=== PATIENT | male | born 1965 | race African-American/Black ===

== ENCOUNTER 2016-08-22 19:10 | Emergency (ER) | payer OTHER ==
--- NOTE | 2016-08-22 19:37 | ERNOTE ---
Date of Service: 08/22/16 Time Seen by Provider: 08/22/16 19:14 Stated Complaint: CHEST CONGESTION. SINUS PAIN Source: patient, family, RN notes reviewed Exam Limitations: no limitations Immunizations: IMMUNIZATION HX Immunizations Up to Date Yes History of Influenza Vaccine Yes Hx Pneumococcal Vaccination Yes Allergies/Adverse Reactions: Allergies No Known Allergies Allergy (Unverified 08/22/16 19:14) Home Medications: HOME MEDICATIONS Amlodipine Besylate 08/22/16 [Last Taken Unknown] Azithromycin [Zithromax] 250 mg PO DAILY #6 tablet 08/22/16 [Last Taken Unknown] Lisinopril 08/22/16 [Last Taken Unknown] [place] 08/22/16 [Last Taken Unknown] Norvir 08/22/16 [Last Taken Unknown] Potassium Chloride [Klor-Con 10] 20 meq PO BID #20 tablet.sa 08/22/16 [Last Taken Unknown] Pravastatin Sodium 08/22/16 [Last Taken Unknown] Prezista 08/22/16 [Last Taken Unknown] Tamsulosin HCl 08/22/16 [Last Taken Unknown] Tivicay 08/22/16 [Last Taken Unknown] Truvada 100 mg-150 mg Tablet 08/22/16 [Last Taken Unknown] metFORMIN HCL 08/22/16 [Last Taken Unknown] - History of Present Ilness Narrative: 51 y/o male ambulatory to the ED with a cough that began 2 days ago. He began having fevers and chills this evening. He is immunocompromised due to his HIV medications. He reports having "infections in the lungs" frequently. His PCP is in [place] and he has never been seen here before. He is routinely seen at [facility] for his HIV. He reports that his viral load and CD4 counts were within normal limits at his last appointment. Date (Duration): 08/20/16 Frequency/Possible Cause: Reports: unknown cause Associated Symptoms: Reports: cough, headache, muscle aches, fever/chills. Denies: chest pain/soreness, shortness of breath, wheezing, facial pain, nasal congestion, nasal drainage, dizziness, lightheadedness, earache, sore throat Prior Treatment: Denies: recently seen, currently on antibiotics Review of Systems - Review of Systems Constitutional: Present: fever, chills, fatigue, malaise, decreased activity level. Absent: recent illness EYE: Present: no symptoms reported ENT: Present: See HPI Respiratory: Present: See HPI Cardiology: Present: See HPI Gastrointestinal/Abdominal: Present: abdominal pain. Absent: nausea, vomiting, diarrhea Genitourinary: Absent: dysuria, decreased urinary output Musculoskeletal: Present: back pain, muscle pain. Absent: neck pain Skin: Absent: rash, lesions Neurological: Present: headache. Absent: dizziness/light-headedness Endocrine: Present: no symptoms reported Hematologic/Lymphatic: Present: no symptoms reported Psych: Present: no symptoms reported - Patient's Past Medical History Patient History - Medical: Anxiety, Bipolar, Diabetes Type 2, Depression Patient History - Cardiac/Respiratory: Hypertension, Hyperlipidemia Patient History - Cancer: No Hx of Cancer Patient History - Surgical Procedures: Other Patient History - Other: HIV - Social History Living Situations: home Abuse History: No History of abuse Psych History: Hx of Anxiety, Hx of Depression, Hx of Bipolar Disorder Smoking Status: Current every day smoker Have you smoked in the past 12 months: Yes Do you dip or chew tobacco: No Patient requests Smoking Cessation Consult: No Initiate information on Smoking Cessation: No Alcohol Use: none Drug Use: none - Immunizations Immunizations Up to Date: Yes Hx Pneumococcal Vaccination: Yes History of Influenza Vaccine: Yes Physical Exam - Physical Exam General Appearance: Present: wd/wn, alert, no apparent distress Eye Exam: Normal inspection: bilateral Ears, Nose, Throat: Present: normal ENT inspection Neck: Present: normal inspection, nontender, supple Respiratory: Present: no respiratory distress, no accessory muscle use, decreased breath sounds, expiration (prolonged), rhonchi - Rt. mid lung Cardiovascular/Chest: Present: regular rate, rhythm, no murmur, normal peripheral pulses Extremity Exam: Present: normal inspection, no edema Neurological Exam: Present: alert, oriented, normal mood/affect, no motor/ sensory deficits Skin Exam: Present: normal color, warm/dry ED Progress - Results and Orders Patient's Lab Results:: I have reviewed the patient's lab results. - Vital Signs Patient's Vital Signs:: I have reviewed the patient's vital signs. Vital Signs: Vital Signs 08/22/16 19:14 Temperature 38.2 C H Pulse Rate 78 Respiratory 18 Rate Blood Pressure 148/86 O2 Sat by Pulse 97 Oximetry - X-Ray X-Ray #1 X-Ray: chest Interpretation: Reviewed by me X-ray Comments: No acute cardiopulmonary process noted - Progress/Reassessment Chief Complaint: Upper Respiratory Symptoms Progress:: Unchanged Plan - Plan Plan: Chest xray unremarkable, but given cough/fever/elevated WBC and his prior history will treat for pneumonia. Also given Kdur for his potassium of 2.9. Agreeable to recheck with his PCP this week. Departure - Departure Clinical Impression: Pneumonia Qualifiers: Pneumonia type: due to unspecified organism Laterality: unspecified laterality Lung location: unspecified part of lung Qualified Code(s): J18.9 - Pneumonia, unspecified organism Disposition: Home Follow Up Needed Condition: Stable Instructions: Hypokalemia, Community-Acquired Pneumonia, Adult, [id number] Additional Instructions: Rest as needed Drink plenty of fluids Return if worse, otherwise recheck with your doctor in 3 to 5 days Referrals: Haroldo Arriaga MD [Primary Care Provider] - Prescriptions: Azithromycin [Zithromax] 250 mg PO DAILY #6 tablet Potassium Chloride [Klor-Con 10] 20 meq PO BID #20 tablet.sa
--- OUTSIDE RECORDS SUMMARY | 2016-08-22 19:46 | XMS REPORT | Summary of Care ---
:1965 Author Organization [facility] Address [address] [place] [phone] Care Team Providers Name Role Phone Physician, Primary Care Primary Care Physician Unavailable Encounter Date(s): 08/20/15 - 08/20/[address] [id number] Final: Human immunodeficiency virus [HIV] disease Final: Chronic viral hepatitis C Final: Bipolar disorder, unspecified Discharge Disposition: Discharged to Home or Self Care Attending Physician: Caterina Shah MD Admitting Physician: Caterina Shah MD Vital Signs No data available for this section Problem List No data available for this section Allergies, Adverse Reactions, Alerts No Known Medication Allergies Medications amLODIPine 2.5 mg oral tablet 1 tab(s), Oral, Daily, # 30 tab(s), 0 Refill(s), Start Date: 08/05/15 12:50:00 CDT Start Date: 08/05/15 Stop Date: 08/20/15 Status: DiscontinuedamLODIPine 2.5 mg oral tablet 1 tab(s), Oral, Daily, # 30 tab(s), 0 Refill(s), Start Date: 08/20/15 14:35:00 CDT, Pharmacy: [id number] Start Date: 08/20/15 Status: Ordereddarunavir 800 mg oral tablet 1 tab(s), Oral, Daily, with food, # 30 tab(s), 1 Refill(s), Start Date: 14:01:00 CDT, Pharmacy: [facility] Special Instructions: with food Start Date: 08/20/15 Status: Ordereddolutegravir 50 mg oral tablet 1 tab(s), Oral, Daily, with food, # 30 tab(s), 1 Refill(s), Start Date: 14:01:00 CDT, Pharmacy: [facility] Special Instructions: with food Start Date: 08/20/15 Status: Orderedlactulose 10 g/15 mL oral syrup 15 mL, Oral, BID, 0 Refill(s), Start Date: 08/05/15 12:51:00 CDT Start Date: 08/05/15 Stop Date: 08/20/15 Status: Discontinuedlactulose 10 g/15 mL oral syrup 15 mL, Oral, BID, # 900 mL, 0 Refill(s), Start Date: 08/20/15 14:34:00 CDT, Pharmacy: [facility] Start Date: 08/20/15 Status: Orderedlisinopril 10 mg oral tablet 1 tab(s), Oral, Daily, # 30 tab(s), 0 Refill(s), Start Date: 07/23/15 9:55:00 CDT Start Date: 07/23/15 Stop Date: 08/05/15 Status: Discontinuedlisinopril 20 mg oral tablet 1 tab(s), Oral, Daily, # 30 tab(s), 0 Refill(s), Start Date: 08/05/15 12:47:00 CDT Start Date: 08/05/15 Stop Date: 08/20/15 Status: Discontinuedlisinopril 20 mg oral tablet 1 tab(s), Oral, Daily, # 30 tab(s), 0 Refill(s), Start Date: 08/20/15 14:34:00 CDT, Pharmacy: [id number] Start Date: 08/20/15 Status: Orderedlithium 300 mg oral capsule 1 cap(s), Oral, Daily, # 30 cap(s), 0 Refill(s), Start Date: 07/23/15 9:54:00 CDT Start Date: 07/23/15 Stop Date: 08/05/15 Status: Discontinuedlithium 450 mg oral tablet, extended release 1 tab(s), Oral, HS, 0 Refill(s), Start Date: 08/05/15 12:49:00 CDT Start Date: 08/05/15 Status: OrderedmetFORMIN 500 mg oral tablet 1 tab(s), Oral, BID, # 60 tab(s), 0 Refill(s), Start Date: 07/23/15 9:54:00 CDT Start Date: 07/23/15 Stop Date: 08/20/15 Status: DiscontinuedmetFORMIN 500 mg oral tablet 1 tab(s), Oral, BID, # 60 tab(s), 0 Refill(s), Start Date: 08/20/15 14:33:00 CDT , Pharmacy: [place] [id number] Start Date: 08/20/15 Status: OrderedNorvir 100 mg oral capsule 1 cap(s), Oral, Daily, # 30 cap(s), 0 Refill(s), Start Date: 07/23/15 9:53:00 CDT Start Date: 07/23/15 Stop Date: 08/05/15 Status: DiscontinuedNorvir 100 mg oral capsule 1 cap(s), Oral, Daily, # 30 cap(s), 5 Refill(s), Start Date: 08/05/15 13:19:00 CDT, Pharmacy: [facility] Start Date: 08/05/15 Status: OrderedNorvir 100 mg oral tablet 1 tab(s), Oral, Daily, with food, # 30 tab(s), 1 Refill(s), Start Date: 14:04:00 CDT, Pharmacy: [facility] Special Instructions: with food Start Date: 08/20/15 Status: Orderedpravastatin 20 mg oral tablet 1 tab(s), Oral, Daily, # 30 tab(s), 0 Refill(s), Start Date: 07/23/15 9:54:00 CDT Start Date: 07/23/15 Stop Date: 08/20/15 Status: Discontinuedpravastatin 20 mg oral tablet 1 tab(s), Oral, Daily, # 30 tab(s), 0 Refill(s), Start Date: 08/20/15 14:33:00 CDT, Pharmacy: [facility] Start Date: 08/20/15 Status: OrderedReyataz 300 mg oral capsule 1 cap(s), Oral, Daily, # 30 cap(s), 0 Refill(s), Start Date: 07/23/15 9:52:00 CDT Start Date: 07/23/15 Stop Date: 08/05/15 Status: DiscontinuedReyataz 300 mg oral capsule 1 cap(s), Oral, Daily, # 30 cap(s), 5 Refill(s), Start Date: 08/05/15 13:19:00 CDT, Pharmacy: [facility] Start Date: 08/05/15 Stop Date: 08/20/15 Status: DiscontinuedTruvada 200 mg-300 mg oral tablet 1 tab(s), Oral, Daily, # 30 tab(s), 0 Refill(s), Start Date: 07/23/15 9:53:00 CDT Start Date: 07/23/15 Stop Date: 08/05/15 Status: DiscontinuedTruvada 200 mg-300 mg oral tablet 1 tab(s), Oral, Daily, # 30 tab(s), 5 Refill(s), Start Date: 08/05/15 13:19:00 CDT, Pharmacy: [facility] Start Date: 08/05/15 Status: OrderedTruvada 200 mg-300 mg oral tablet 1 tab(s), Oral, Daily, with food, # 30 tab(s), 1 Refill(s), Start Date: 14:01:00 CDT, Pharmacy: [facility] Special Instructions: with food Start Date: 08/20/15 Status: OrderedVitamin D3 1000 intl units oral capsule 1 cap(s), Oral, Daily, # 100 cap(s), 0 Refill(s), Start Date: 07/23/15 9:55:00 CDT Start Date: 07/23/15 Status: Ordered Results Patient Viewable Results Most recent to oldest [Reference Range]: 1 WBC [4.8-10.8 thou/mm3] 9.3 thou/mm3 (08/20/15 2:46 PM) RBC [4.60-6.00 Mil/mm3] 4.48 Mil/mm3 *LOW* (08/20/15 2:46 PM) Hgb [14.0-18.0 g/dL] 14.3 g/dL (08/20/15 2:46 PM) Hct [42.0-52.0 %] 40.6 % *LOW* (08/20/15 2:46 PM) MCV [80.0-94.0 fL] 90.6 fL (08/20/15 2:46 PM) MCH [25.0-38.0 pg/cell] 31.9 pg/cell (08/20/15 2:46 PM) MCHC [31.0-37.0 g/dL] 35.2 g/dL (08/20/15 2:46 PM) RDW [1.0-48.0 fL] 48.8 fL *HI* (08/20/15 2:46 PM) Platelet [130-400 thou/mm3] 129 thou/mm3 *LOW* (08/20/15 2:46 PM) Neutrophils % Auto [50.0-75.0 %] 41.1 % *LOW* (08/20/15 2:46 PM) Immature Granulocyte Auto [0.1-2.0 %] 0.1 % (08/20/15 2:46 PM) Lymphocytes % Auto [15.0-41.0 %] 45.3 % *HI* (08/20/15 2:46 PM) Monocytes % Auto [2.0-10.0 %] 10.1 % *HI* (08/20/15 2:46 PM) Eosinophils % Auto [0.0-6.0 %] 3.2 % (08/20/15 2:46 PM) Basophil % Auto [0.0-1.0 %] 0.2 % (08/20/15 2:46 PM) Neutrophils Absolute [1.5-5.9 thou/mm3] 3.8 thou/mm3 (08/20/15 2:46 PM) Immature Gran Absolute [0.01-0.03 thou/mm3] 0.01 thou/mm3 (08/20/15 2:46 PM) Lymphocytes Absolute [1.5-4.0 thou/mm3] 4.2 thou/mm3 *HI* (08/20/15 2:46 PM) Monocytes Absolute [0.0-0.9 thou/mm3] 0.9 thou/mm3 (08/20/15 2:46 PM) Eosinophil Absolute [0.0-0.7 thou/mm3] 0.3 thou/mm3 (08/20/15 2:46 PM) Basophil Absolute [0.0-0.2 thou/mm3] 0.0 thou/mm3 (08/20/15 2:46 PM) INR [0.9-1.1 INR] 1.0 INR (08/20/15 2:46 PM) Sodium Lvl [135-144 mEq/L] 143 mEq/L (08/20/15 2:46 PM) Potassium Lvl [3.3-4.8 mEq/L] 3.0 mEq/L *LOW* (08/20/15 2:46 PM) Chloride Lvl [98-107 mEq/L] 105 mEq/L (08/20/15 2:46 PM) Bicarbonate Lvl [22-30 mmol/L] 24 mmol/L (08/20/15 2:46 PM) Anion Gap [10.0-20.0] 17.0 (08/20/15 2:46 PM) Glucose Lvl [70-108 mg/dL] 103 mg/dL (08/20/15 2:46 PM) BUN [7-21 mg/dL] 11 mg/dL (08/20/15 2:46 PM) Creatinine Lvl [0.50-1.20 mg/dL] 0.64 mg/dL (08/20/15 2:46 PM) BUN/Creat Ratio 17.2 *NA* (08/20/15 2:46 PM) eGFR AA [>=60] >60 (08/20/15 2:46 PM) eGFR TRAN [>=60] >60 (08/20/15 2:46 PM) Calcium Lvl [8.6-10.2 mg/dL] 9.9 mg/dL (08/20/15 2:46 PM) Total Protein [6.4-8.3 g/dL] 9.0 g/dL *HI* (08/20/15 2:46 PM) Albumin Lvl [3.5-5.2 g/dL] 4.3 g/dL (08/20/15 2:46 PM) Globulin 4.7 *NA* (08/20/15 2:46 PM) A/G Ratio [0.9-1.8] 0.9 (08/20/15 2:46 PM) Bilirubin Total [0.1-1.0 mg/dL] 2.8 mg/dL *HI* (08/20/15 2:46 PM) Alkaline Phosphatase [39-129 unit/L] 129 unit/L (08/20/15 2:46 PM) AST [0-39 unit/L] 182 unit/L *HI* (08/20/15 2:46 PM) ALT [0-40 unit/L] 135 unit/L *HI* (08/20/15 2:46 PM) AFP-Ulman [<6.0 ng/mL] 5.9 ng/mL1 *NA* (08/20/15 2:46 PM) HCV Genotype,S- [place]man [Undetected] 1b2 *ABN* (08/20/15 2:46 PM) Estimated Creatinine Clearance 131.97 mL/min (08/20/15 3:23 PM) [place] Lvl [0.6-1.2 mmol/L] 0.3 mmol/L *LOW* (08/20/15 2:46 PM) 1Result Comment: AFP values are<6 ng/mL for 95%, and<15 ng/mL for 99% of the normal population. Two percent of non- healthy individuals, without liver disease, hepatocellular carcinoma, or germ-cell tumors, may have AFP test values exceeding 6 ng/mL. Furthermore, "persistence of alpha-fetoprotein", an uncommon hereditary trait, may cause elevations of AFP above the reference interval. ADDITIONAL INFORMATION The testing method is an immunoenzymatic assay manufactured by [employer] and performed on the [employer] DxI 800. Values obtained with different assay methods or kits may be different and cannot be used interchangeably. Test results cannot be interpreted as absolute evidence for the presence or absence of malignant disease. Alpha-Fetoprotein values are not interpretable in females for the investigation of malignant disease. Test Performed by: [facility] - [address] [address] Financial Report Service Sales Agent: Christiano Paula II, M.D., Ph.D.2Result Comment: ADDITIONAL INFORMATION This test was performed using the [employer] RealTime HCV Genotype II assay ([employer] [place], [place]). Test Performed by: [place] [address] Financial Report Service Sales Agent: Chrisitano Paula II, M.D., Ph.D. Immunizations Vaccine Date Refusal Reason pneumococcal 13-valent conjugate vaccine 03/06/15 Procedures Procedure Date Related Diagnosis Body Site Miscellaneous operations1 1L arm surgery for sepsis. Social History No data available for this section Assessment and Plan No data available for this section
--- OUTSIDE RECORDS SUMMARY | 2016-08-22 19:46 | XMS REPORT | Summary of Care ---
:1965 Author Organization [facility] Address [address] [place] [address] Care Team Providers Name Role Phone Physician, Primary Care Primary Care Physician Unavailable Encounter Date(s): 08/20/15 - 08/20/15 [facility] [address] [place], [place] [address] Discharge Diagnosis: HIV disease Discharge Diagnosis: Chronic hepatitis C virus infection Discharge Diagnosis: Bipolar disease, chronic Discharge Disposition: 01 Discharged to Home or Self Care Attending Physician: Caterina Shah MD Referring Physician: Caterina Shah MD Vital Signs Most recent to oldest [Reference Range]: 1 Temperature Tympanic [36.6-38.1 DegC] 36.6 DegC (08/20/15 1:42 PM) Temperature C to F 97.9 (08/20/15 1:42 PM) Peripheral Pulse Rate [60-100 bpm] 65 bpm (08/20/15 1:42 PM) SpO2 99 % (08/20/15 1:42 PM) Blood Pressure [90-130/60-90 mmHg] 140/81mmHg *HI* (08/20/15 1:42 PM) Mean Arterial Pressure, Cuff 101 mmHg (08/20/15 1:42 PM) Most recent to oldest [Reference Range]: 1 Height/Length Measured 173.50 cm (08/20/15 1:42 PM) Weight Dosing 77.20 kg1 (08/20/15 1:43 PM) Weight Measured 77.2 kg (08/20/15 1:42 PM) BSA Measured 1.91 m2 (08/20/15 1:42 PM) Body Mass Index Measured 25.65 kg/m2 (08/20/15 1:42 PM) 1Result Comment: This result was because the dosing weight was either not entered or it is>30 days old. This result is based off: Weight Measured August 20, 2015 13:42:00 CDT by Mei Duncan Problem List No data available for this section Allergies, Adverse Reactions, Alerts No Known Medication Allergies Medications amLODIPine 2.5 mg oral tablet 1 tab(s), Oral, Daily, # 30 tab(s), 0 Refill(s), Start Date: 08/05/15 12:50:00 CDT Start Date: 08/05/15 Stop Date: 08/20/15 Status: DiscontinuedamLODIPine 2.5 mg oral tablet 1 tab(s), Oral, Daily, # 30 tab(s), 0 Refill(s), Start Date: 08/20/15 14:35:00 CDT, Pharmacy: [facility] Start Date: 08/20/15 Status: Ordereddarunavir 800 mg oral tablet 1 tab(s), Oral, Daily, with food, # 30 tab(s), 1 Refill(s), Start Date: 14:01:00 CDT, Pharmacy: [facility] Special Instructions: with food Start Date: 08/20/15 Status: Ordereddolutegravir 50 mg oral tablet 1 tab(s), Oral, Daily, with food, # 30 tab(s), 1 Refill(s), Start Date: 14:01:00 CDT, Pharmacy: [facility] Special Instructions: with food Start Date: 08/20/15 Status: Orderedlactulose 10 g/15 mL oral syrup 15 mL, Oral, BID, 0 Refill(s), Start Date: 08/05/15 12:51:00 CDT Start Date: 08/05/15 Stop Date: 08/20/15 Status: Discontinuedlactulose 10 g/15 mL oral syrup 15 mL, Oral, BID, # 900 mL, 0 Refill(s), Start Date: 08/20/15 14:34:00 CDT, Pharmacy: [facility] Start Date: 08/20/15 Status: Orderedlisinopril 10 mg [...] Refill(s), Start Date: 08/20/15 14:34:00 CDT, Pharmacy: [facility] Start Date: 08/20/15 Status: Orderedlithium 300 mg [...] Start Date: 08/20/15 14:33:00 CDT , Pharmacy: [facility] Start Date: 08/20/15 Status: OrderedNorvir 100 mg oral capsule 1 cap(s), Oral, Daily, # 30 cap(s), 0 Refill(s), Start Date: 07/23/15 9:53:00 CDT Start Date: 07/23/15 Stop Date: 08/05/15 Status: DiscontinuedNorvir 100 mg oral capsule 1 cap(s), Oral, Daily, # 30 cap(s), 5 Refill(s), Start Date: 08/05/15 13:19:00 CDT, Pharmacy: [place] [id number] Start Date: 08/05/15 Status: OrderedNorvir 100 mg oral tablet 1 tab(s), Oral, Daily, with food, # 30 tab(s), 1 Refill(s), Start Date: 14:04:00 CDT, Pharmacy: [facility] Special Instructions: with food Start Date: 08/20/15 Status: Orderedpravastatin 20 mg oral tablet 1 tab(s), Oral, Daily, # 30 tab(s), 0 Refill(s), Start Date: 07/23/15 9:54:00 CDT Start Date: 07/23/15 Stop Date: 08/20/15 Status: Discontinuedpravastatin 20 mg oral tablet 1 tab(s), Oral, Daily, # 30 tab(s), 0 Refill(s), Start Date: 08/20/15 14:33:00 CDT, Pharmacy: [place] [id number] Start Date: 08/20/15 Status: OrderedReyataz 300 mg oral capsule 1 cap(s), Oral, Daily, # 30 cap(s), 0 Refill(s), Start Date: 07/23/15 9:52:00 CDT Start Date: 07/23/15 Stop Date: 08/05/15 Status: DiscontinuedReyataz 300 mg oral capsule 1 cap(s), Oral, Daily, # 30 cap(s), 5 Refill(s), Start Date: 08/05/15 13:19:00 CDT, Pharmacy: [place] [id number] Start Date: 08/05/15 Stop Date: 08/20/15 Status: DiscontinuedTruvada 200 mg-300 mg oral tablet 1 tab(s), Oral, Daily, # 30 tab(s), 0 Refill(s), Start Date: 07/23/15 9:53:00 CDT Start Date: 07/23/15 Stop Date: 08/05/15 Status: DiscontinuedTruvada 200 mg-300 mg oral tablet 1 tab(s), Oral, Daily, # 30 tab(s), 5 Refill(s), Start Date: 08/05/15 13:19:00 CDT, Pharmacy: [facility] Start Date: 08/05/15 Status: OrderedTruvada 200 mg-300 mg oral tablet 1 tab(s), Oral, Daily, with food, # 30 tab(s), 1 Refill(s), Start Date: 14:01:00 CDT, Pharmacy: [facility] Special Instructions: with food Start Date: 08/20/15 Status: OrderedVitamin D3 1000 intl units oral capsule 1 cap(s), Oral, Daily, # 100 cap(s), 0 Refill(s), Start Date: 07/23/15 9:55:00 CDT Start Date: 07/23/15 Status: Ordered Results No data available for this section Immunizations Vaccine Date Refusal Reason pneumococcal 13-valent conjugate vaccine 03/06/15 Procedures Procedure Date Related Diagnosis Body Site Miscellaneous operations1 1L arm surgery for sepsis. Social History No data available for this section Assessment and Plan No data available for this section
[2016-08-22 19:55] LABS: Hematocrit 37.7 % (42.0-52.0); Hemoglobin 13.5 gm/dL (13.5-18.0); Mean Cell Volume 89.8 fl (78-100); Mean Corpuscular Hemoglobin 32.1 pg (27-31); Mean Corpuscular Hgb Conc 35.8 g/dl (32-36); Mean Platelet Volume 10.3 fl (6.0-9.5); Neutrophil # 8.9 K/mm3 (1.3-6.0); Neutrophil % 66.9 % (42-75.0); Platelet Count 158 K/mm3 (150-450); Red Cell Distribution Width 14.7 % (11.5-14.0); White Blood Count 13.3 K/mm3 (4.0-10.5)
[2016-08-22 20:13] LABS: Albumin * 3.2 gm/dl (3.4-5.0); Anion Gap 14.5 mmol/L (6.8-13.8); BUN/Creatinine Ratio 8.5 (9.0-21.6); Bilirubin, Total 0.5 mg/dL (0.0-1.1); Ca. Corrected For Albumin 9.2 mg/dL (8.4-10.2); Calcium * 8.9 mg/dL (7.9-10.9); Carbon Dioxide 23.4 mmol/L (24-32.6); Potassium 2.9 mmol/L (3.4-4.6); Total Protein 7.7 gm/dL (6.2-8.2)
[2016-08-22 20:34] LABS: Urine Appearance Clear; Urine Bilirubin Negative (NEGATIVE); Urine Blood 10 /ul (NEGATIVE); Urine Color Yellow; Urine Ketone Negative (NEGATIVE); Urine Nitrite Negative (NEGATIVE); Urine Protein 100 mg/dL (NEGATIVE); Urine Urobilinogen Normal (NORMAL)
[2016-08-22 20:35] LABS: Urine Bacteria None Seen; Urine RBC 0-5 /hpf (0-5); Urine WBC 0-5 /hpf (0-5)
[2016-08-22] MEDS ORDERED: POTASSIUM CHLORIDE 20 MEQ TABLET.SA PO ONE (20:51)
[2016-08-22] MEDS ORDERED: AZITHROMYCIN 250 MG TABLET PO ONE (20:51)
[2016-08-22] MEDS ORDERED: AZITHROMYCIN 250 MG TABLET ONE (20:55)
[2016-08-22] MEDS ORDERED: POTASSIUM CHLORIDE 20 MEQ TABLET.SA ONE (20:55)
[2016-08-22 21:05] VITALS: BP 137/72
== END 2016-08-22 21:04 | disposition home or self-care (01) ==
LOC: ER 19:10
DX: J18.9 Pneumonia, unspecified organism (principal)